=== PATIENT | female | born 1945 | race Caucasian/White ===

== ENCOUNTER 2019-09-30 03:19 | Outpatient (CLI) | payer MEDICARE | END 2019-09-30 03:20 | disposition critical access hospital (66) | LOC: EMS 03:19 | PROVIDERS: ATTEND Surgery | DX: R47.81 Slurred speech (principal); R46.4 Slowness and poor responsiveness; R29.810 Facial weakness; R53.1 Weakness | CPT/HCPCS: A0425; A0429 ==

== ENCOUNTER 2019-09-30 03:32 | Emergency (ER) | payer MEDICARE, OTHER ==
--- NOTE | 2019-09-30 03:36 | ED Physician Documentation ---
History of Present Illness - Stated complaint Stated Complaint: LT SIDE WEAKNESS, FACIAL DROOP - History obtained from History obtained from: Patient, EMS (The patient is a 74-year-old female brought in by EMS after her found her this morning with left-sided facial droop and left-sided weakness her last known normal was approximately 8 hours prior to arrival at 1900 yesterday. EMS also reports that she currently is being treated for pneumonia. the remainder of the history is unknown.) Review of Systems Unable to obtain: [facility] PAST MEDICAL HISTORY - Present Medications Home Medications: Ambulatory Orders Medication Instructions Recorded Confirmed Acetaminophen [Tylenol Extra 500 mg PO Q8HR PRN 09/30/19 09/30/19 Strength] Levofloxacin [Levaquin] 750 mg PO DAILY 09/30/19 09/30/19 Prednisone 10 mg PO DAILY 09/30/19 09/30/19 SUMAtriptan [Imitrex] 50 mg PO ONCE PRN 09/30/19 09/30/19 oxyCODONE [Roxicodone] 5 mg PO QID PRN 09/30/19 09/30/19 - Allergies Allergies/Adverse Reactions: Allergies Allergy/AdvReac Type Severity Reaction Status Date / Time Sulfa (Sulfonamide Allergy Mild Hives Verified 02/05/13 15:02 Antibiotics) amoxicillin [Amoxicillin] Allergy Unknown Rash Verified 02/05/13 15:03 codeine [Codeine] AdvReac Intermediate Nausea Verified 02/05/13 15:01 PD ED PE NORMAL - Vitals Vital signs reviewed: Yes - General General: Alert and oriented X 3, No acute distress, Well developed/nourished - HEENT HEENT: PERRL, Moist mucous membranes - Neck Neck: Supple, no meningeal sign, Thyroid normal - Cardiac Cardiac: RRR, No murmur, Strong equal pulses - Respiratory Respiratory: Clear bilaterally, Other (Diffuse crackles and rhonchi in bilateral lung gar[place] wet productive cough trachea midline) - Abdomen Abdomen: Normal bowel sounds, Soft, Non tender, Non distended - Derm Derm: Warm and dry - Extremities Extremities: No deformity - Neuro Neuro: Other (Left-sided facial droop left upper and lower extremity weakness. NIH 9.) - Psych Psych: Normal mood, Normal affect Results - Vitals Vitals: Oxygen O2 Source Nasal cannula Oxygen Flow Rate 2 - EKG (time done) 03:46 Rate: Other (no stemi) - Labs Labs: Microbiology 09/30/19 06:30 Blood Culture - Preliminary Blood NO GROWTH AFTER 1 DAY 09/30/19 04:50 Blood Culture - Preliminary Blood NO GROWTH AFTER 1 DAY Laboratory Tests 09/30/19 09/30/19 09/30/19 04:20 04:20 04:30 WBC RBC Hgb Hct MCV MCH MCHC RDW Plt Count MPV Neut # (Auto) Lymph # (Auto) [place] # (Auto) Eos # (Auto) Baso # (Auto) Absolute Nucleated RBC Nucleated RBC % PT INR APTT Sodium Potassium Chloride Carbon Dioxide Anion Gap BUN Creatinine Estimated GFR (MDRD) Glucose Lactic Acid Calcium Magnesium Total Bilirubin AST ALT Alkaline Phosphatase Total Creatine Kinase Troponin I High Sens B-Natriuretic Peptide Total Protein Albumin Globulin Albumin/Globulin Ratio Lipase Urine Color YELLOW Urine Clarity CLEAR Urine pH 5.0 Ur Specific [place] >=1.030 H Urine Protein >=300 H Urine Glucose (UA) NEGATIVE Urine Ketones TRACE Urine Occult Blood SMALL H Urine Nitrite NEGATIVE Urine Bilirubin NEGATIVE Urine Urobilinogen 0.2 (NORMAL) Ur Leukocyte Esterase NEGATIVE Urine RBC 0-5 Urine WBC 0-3 Ur Squamous Epith Cells NONE SEEN Urine Bacteria Rare Urine Casts 6-10 Hyaline Casts Ur Microscopic Review INDICATED Urine Culture Comments NOT INDICATED Urine Opiates Screen POSITIVE H Ur Oxycodone Screen POSITIVE H Urine Methadone Screen NEGATIVE Ur Propoxyphene Screen NEGATIVE Ur Barbiturates Screen NEGATIVE Ur Tricyclics Screen POSITIVE H Ur Phencyclidine Scrn POSITIVE H Ur Amphetamine Screen NEGATIVE U Methamphetamines Scrn NEGATIVE U Benzodiazepines Scrn POSITIVE H Urine Cocaine Screen POSITIVE H U Cannabinoids Screen NEGATIVE Ethyl Alcohol Influenza A (Rapid) Negative Influenza B (Rapid) Negative RSV Rapid Negative 09/30/19 09/30/19 09/30/19 04:50 04:50 04:50 WBC 14.0 H RBC 3.88 L Hgb 10.3 L Hct 33.6 L MCV 86.6 MCH 26.5 L MCHC 30.7 L RDW 16.3 H Plt Count 162 MPV 10.1 Neut # (Auto) 12.8 H Lymph # (Auto) 0.3 L [place] # (Auto) 0.7 Eos # (Auto) 0.0 Baso # (Auto) 0.0 Absolute Nucleated RBC 0.00 Nucleated RBC % 0.0 PT 15.3 H INR 1.4 H APTT 31.8 Sodium 133 L Potassium 4.5 Chloride 103 Carbon Dioxide 20 L Anion Gap 10.0 BUN 29 H Creatinine 1.3 H Estimated GFR (MDRD) 40 L Glucose 158 H Lactic Acid Calcium 8.5 Magnesium 2.7 Total Bilirubin 0.6 AST 34 ALT 16 Alkaline Phosphatase 75 Total Creatine Kinase 362 H Troponin I High Sens B-Natriuretic Peptide Total Protein 6.7 Albumin 3.4 Globulin 3.3 Albumin/Globulin Ratio 1.0 Lipase 836 H Urine Color Urine Clarity Urine pH Ur Specific [place] Urine Protein Urine Glucose (UA) Urine Ketones Urine Occult Blood Urine Nitrite Urine Bilirubin Urine Urobilinogen Ur Leukocyte Esterase Urine RBC Urine WBC Ur Squamous Epith Cells Urine Bacteria Urine Casts Ur Microscopic Review Urine Culture Comments Urine Opiates Screen Ur Oxycodone Screen Urine Methadone Screen Ur Propoxyphene Screen Ur Barbiturates Screen Ur Tricyclics Screen Ur Phencyclidine Scrn Ur Amphetamine Screen U Methamphetamines Scrn U Benzodiazepines Scrn Urine Cocaine Screen U Cannabinoids Screen Ethyl Alcohol < 5.0 Influenza A (Rapid) Influenza B (Rapid) RSV Rapid 09/30/19 09/30/19 09/30/19 04:50 04:50 04:50 WBC RBC Hgb Hct MCV MCH MCHC RDW Plt Count MPV Neut # (Auto) Lymph # (Auto) [place] # (Auto) Eos # (Auto) Baso # (Auto) Absolute Nucleated RBC Nucleated RBC % PT INR APTT Sodium Potassium Chloride Carbon Dioxide Anion Gap BUN Creatinine Estimated GFR (MDRD) Glucose Lactic Acid 1.1 Calcium Magnesium Total Bilirubin AST ALT Alkaline Phosphatase Total Creatine Kinase Troponin I High Sens 3869.6 H* B-Natriuretic Peptide 1759 H Total Protein Albumin Globulin Albumin/Globulin Ratio Lipase Urine Color Urine Clarity Urine pH Ur Specific [place] Urine Protein Urine Glucose (UA) Urine Ketones Urine Occult Blood Urine Nitrite Urine Bilirubin Urine Urobilinogen Ur Leukocyte Esterase Urine RBC Urine WBC Ur Squamous Epith Cells Urine Bacteria Urine Casts Ur Microscopic Review Urine Culture Comments Urine Opiates Screen Ur Oxycodone Screen Urine Methadone Screen Ur Propoxyphene Screen Ur Barbiturates Screen Ur Tricyclics Screen Ur Phencyclidine Scrn Ur Amphetamine Screen U Methamphetamines Scrn U Benzodiazepines Scrn Urine Cocaine Screen U Cannabinoids Screen Ethyl Alcohol Influenza A (Rapid) Influenza B (Rapid) RSV Rapid 09/30/19 09/30/19 08:12 09:43 WBC RBC Hgb Hct MCV MCH MCHC RDW Plt Count MPV Neut # (Auto) Lymph # (Auto) [place] # (Auto) Eos # (Auto) Baso # (Auto) Absolute Nucleated RBC Nucleated RBC % PT INR APTT Sodium Potassium Chloride Carbon Dioxide Anion Gap BUN Creatinine Estimated GFR (MDRD) Glucose Lactic Acid Calcium Magnesium Total Bilirubin AST ALT Alkaline Phosphatase Total Creatine Kinase Troponin I High Sens 3623.6 H* B-Natriuretic Peptide Total Protein Albumin Globulin Albumin/Globulin Ratio Lipase Urine Color Urine Clarity Urine pH Ur Specific [place] Urine Protein Urine Glucose (UA) Urine Ketones Urine Occult Blood Urine Nitrite Urine Bilirubin Urine Urobilinogen Ur Leukocyte Esterase Urine RBC Urine WBC Ur Squamous Epith Cells Urine Bacteria Urine Casts Ur Microscopic Review Urine Culture Comments Urine Opiates Screen POSITIVE H Ur Oxycodone Screen POSITIVE H Urine Methadone Screen NEGATIVE Ur Propoxyphene Screen NEGATIVE Ur Barbiturates Screen NEGATIVE Ur Tricyclics Screen POSITIVE H Ur Phencyclidine Scrn POSITIVE H Ur Amphetamine Screen NEGATIVE U Methamphetamines Scrn NEGATIVE U Benzodiazepines Scrn POSITIVE H Urine Cocaine Screen POSITIVE H U Cannabinoids Screen NEGATIVE Ethyl Alcohol Influenza A (Rapid) Influenza B (Rapid) RSV Rapid PD MEDICAL DECISION MAKING - ED course Complexity details: considered differential (cva), other (cta shows small vessel occlusion, no large vessel occlusion. patient not a TPA candidiate or a neurointerventional candidate. patient will be transferred to a higher level of care as patient will need speech therpist and swallowing/speech therapy. ) - Consults Consults: Discussed case with (DR. Lawrence at [facility]. he does not recommend TPA or neurointerventional. this patient will need higher level of care for stroke care as patient is having speech deficits and we do not have speech therapy. ), Request databases software consultant accept pt in transfer (dr. lawrence neurologist at [facility] will accept this patient. ) - Critical Care Time(min): 30 Time Includes: Direct patient care, Review records, Reassess patient, Document care, Coordinate care, Medical consult Data interpretation: Labs, Pulse ox, CXR Procedures included in critical care time: Peripheral IV Procedures excluded from critical care time: EKG Departure - Departure Disposition: 02 Transfer Acute Care Hosp Clinical Impression: Ischemic stroke Condition: Stable Discharge Date/Time: 09/30/19 09:55
[2019-09-30 04:39] LABS: RESPIRATORY SYNCYTIAL VIRUS Negative (Negative)
[2019-09-30 04:42] LABS: MUDS CUTOFF CONCENTRATIONS CUTOFF CONC BELOW:
[2019-09-30 04:43] LABS: GLUCOSE, URINE (UA) NEGATIVE (NEGATIVE); KETONES,URINE (UA) TRACE mg/dL (NEGATIVE); LEUKOCYTE ESTERASE, URINE NEGATIVE (NEGATIVE); NITRITE,URINE NEGATIVE (NEGATIVE); OCCULT BLOOD,URINE SMALL (NEGATIVE); PROTEIN,URINE >=300 mg/dL (NEGATIVE); UROBILINOGEN,URINE 0.2 (NORMAL) E.U./dL (NORMAL)
[2019-09-30 04:46] LABS: BILIRUBIN,URINE NEGATIVE (NEGATIVE); CLARITY,URINE CLEAR (CLEAR); ICTOTEST,URINE NEGATIVE
[2019-09-30 04:51] LABS: BACTERIA,URINE Rare /HPF (None Seen); CASTS, URINE 6-10 Hyaline Casts /LPF; RBC,URINE 0-5 /HPF (0-5); SQUAMOUS EPITHELIAL CELL,UR NONE SEEN (<= Few)
[2019-09-30 04:54] LABS: AMPHETAMINE SCREEN,URINE NEGATIVE (NEGATIVE); BENZODIAZEPINES SCREEN, URINE POSITIVE (NEGATIVE); COCAINE SCREEN URINE POSITIVE (NEGATIVE); METHAMPHETAMINES SCREEN, URINE NEGATIVE (NEGATIVE); OPIATE SCREEN, URINE POSITIVE (NEGATIVE); TRICYCLIC ANTIDEPRESSANT,URINE POSITIVE (NEGATIVE)
[2019-09-30 04:55] LABS: METHADONE SCREEN, URINE NEGATIVE (NEGATIVE); OXYCODONE SCREEN, URINE POSITIVE (NEGATIVE); PROPOXYPHENE SCREEN, URINE NEGATIVE (NEGATIVE)
[2019-09-30 05:08] LABS: BASOPHILS % (AUTO) 0.2 %; HGB - HEMOGLOBIN 10.3 g/dL (12.0-16.0); LYMPHOCYTES # (AUTO) 0.3 10^3/uL (1.5-3.5); LYMPHOCYTES % (AUTO) 2.4 %; MEAN CORPUSCULAR HEMOGLOBIN 26.5 pg (27.0-31.0); MEAN CORPUSCULAR HGB CONC 30.7 g/dL (32.0-36.0); MEAN CORPUSCULAR VOLUME 86.6 fL (81.0-99.0); MEAN PLATELET VOLUME 10.1 fL (7.9-10.8); MONOCYTES # (AUTO) 0.7 10^3/uL (0.0-1.0); MONOCYTES % (AUTO) 5.1 %; NEUTROPHILS # (AUTO) 12.8 10^3/uL (1.5-6.6); NEUTROPHILS % (AUTO) 91.5 %; PLT - PLATELET COUNT 162 10^3/uL (130-450); RED BLOOD COUNT 3.88 10^6/uL (4.20-5.40); RED CELL DISTRIBUTION WIDTH 16.3 % (12.0-15.0)
[2019-09-30 05:15] LABS: INR 1.4 (0.8-1.2); PT - PROTHROMBIN TIME 15.3 secs (9.9-12.6)
[2019-09-30 05:22] LABS: PARTIAL THROMBOPLASTIN TIME 31.8 secs (24.9-33.3)
[2019-09-30 05:38] LABS: ALBUMIN 3.4 g/dL (3.2-5.5); ALKALINE PHOSPHATASE 75 IU/L (42-121); ALT ALANINE AMINOTRANSFERASE 16 IU/L (10-60); AST ASPARTATE AMINOTRANSFERASE 34 IU/L (10-42); BILIRUBIN,TOTAL 0.6 mg/dL (0.2-1.0); BUN - BLOOD UREA NITROGEN 29 mg/dL (6-20); CALCIUM 8.5 mg/dL (8.5-10.3); CARBON DIOXIDE - CO2 20 mmol/L (21-32); CHLORIDE 103 mmol/L (101-111); CK- CREATINE KINASE 362 IU/L (22-269); CREATININE 1.3 mg/dL (0.4-1.0); GLUCOSE 158 mg/dL (70-100); LIPASE 836 U/L (22-51); MAGNESIUM 2.7 mg/dL (1.7-2.8); SODIUM 133 mmol/L (135-145); TOTAL PROTEIN 6.7 g/dL (6.7-8.2)
[2019-09-30] MEDS ORDERED: IOVERSOL 320 100 ML VIAL IVP ONE ×2 (05:59→06:00)
--- NOTE | 2019-09-30 07:44 | CT Report ---
Reason: Left-sided weakness Procedure Date: 09/30/2019 Accession Number: [id number] / [id number] Procedure: CT - HEAD WO CPT Code: Final Report FULL RESULT: PROCEDURE: HEAD WO INDICATIONS: Left-sided weakness TECHNIQUE: Noncontrast 4.5 mm thick angled axial sections acquired from the foramen magnum to the vertex. For radiation dose reduction, the following was used: automated exposure control, adjustment of mA and/or kV according to patient size. COMPARISON: Brain MRI 02/07/[address] head 02/05/2013 FINDINGS: Image quality: Excellent. CSF spaces: Basal cisterns are patent. No extra-axial fluid collections. The ventricles are symmetric in size and shape. Brain: No intracranial bleeds or masses. There is cerebral volume loss for age, with resultant ventricular and sulcal prominence. There are periventricular and deep white matter chronic small vessel ischemic changes. There is intracranial internal carotid artery atherosclerosis. Skull and face: Calvarium and visualized facial bones appear intact, without suspicious lesions. Sinuses: Visualized sinuses and mastoids are clear. IMPRESSION: No acute intracranial disease process. Reviewed by: Maureen Warren MD, PhD on 09/30/2019 7:42 AM PDT Approved by: Maureen Warren MD, PhD on 09/30/2019 7:42 AM PDT Station ID: [id number]
--- NOTE | 2019-09-30 07:49 | XRAY Report ---
Reason: ams Procedure Date: 09/30/2019 Accession Number: [id number] / [id number] Procedure: XR - Chest 1 View X-Ray CPT Code: 25368 Final Report FULL RESULT: PROCEDURE: Chest 1 View X-Ray INDICATIONS: Acute mental status changes TECHNIQUE: One view of the chest was acquired. COMPARISON: 02/05/2013 FINDINGS: Surgical changes and devices: None. Lungs and pleura: No pleural effusions or pneumothorax. There is cephalization the pulmonary vasculature and interstitial prominence suggesting fluid overload/CHF. Subtle opacity noted in the right upper lobe. Mediastinum: Mediastinal contours appear normal. Heart size is normal. Bones and chest wall: No suspicious bony lesions. Overlying soft tissues appear unremarkable. IMPRESSION: 1. Findings suggestive of CHF/fluid overload. 2. Subtle opacity right upper lobe which could represent atelectasis, pulmonary edema or pneumonia. Reviewed by: Maureen Warren MD, PhD on 09/30/2019 7:48 AM PDT Approved by: Maureen Warren MD, PhD on 09/30/2019 7:48 AM PDT Station ID: [id number]
--- NOTE | 2019-09-30 08:23 | CT Report ---
Reason: L sided facial droop, L neck pain Procedure Date: 09/30/2019 Accession Number: [id number] / [id number] Procedure: CT - ANGIO NECK W CPT Code: Final Report FULL RESULT: PROCEDURE: ANGIO NECK W INDICATIONS: L sided facial droop, L neck pain CONTRAST: IV CONTRAST: Optiray 320 ml: 80 PO CONTRAST: *NO PO CONTRAST TECHNIQUE: After the administration of intravenous contrast, 1.5 mm axial sections acquired from the aortic arch to the [place] of [place]. Coronal 3-D maximum intensity projection (MIP) and/or volume rendering reformats were then performed. For radiation dose reduction, the following was used: automated exposure control, adjustment of mA and/or kV according to patient size. COMPARISON: CTA neck 09/30/2019, CT brain 09/30/2019, MR I/MRA brain 02/07/2013 FINDINGS: Image quality: Excellent. The origins of the left and right common, internal and exterrnal carotid arteries demonstrate no areas of hemodynamically significant stenosis, vascular occlusion or aneurysmal dilation. Origin of the left vertebral artery and right vertebral artery demonstrate no areas of hemodynamically significant stenosis, vascular occlusion or aneurysmal dilation. There is marked attenuation of the right M3 division of the middle cerebral artery. There is questionable subtle appearance of low attenuation within the surrounding kahn matter. Aortic arch demonstrates conventional anatomy. Limited, visualized portions of the subclavian vasculature are unremarkable. Partially visualized pleural effusions are noted. Enlarged mediastinal lymph nodes are present including a 17 mm anterior paratracheal node. IMPRESSION: 1. Attenuated appearance of the anterior division of the right middle cerebral artery with questionable, subtle appearance of hypoattenuation within the surrounding kahn matter. Occlusion with surrounding infarct cannot be excluded and MRI brain is recommended for further evaluation. 2. Partially visualized mediastinal adenopathy and pleural effusions. CT chest may be obtained as clinically indicated for further evaluation. The above findings are concordant with preliminary report. The estimate of stenosis included in the report of the imaging study was calculated using the NASCET method Reviewed by: Fidelia Johnson MD on 09/30/2019 8:22 AM PDT Approved by: Fidelia Johnson MD on 09/30/2019 8:22 AM PDT Station ID: [id number]
[2019-09-30 08:25] LABS: MUDS CUTOFF CONCENTRATIONS CUTOFF CONC BELOW:
--- NOTE | 2019-09-30 08:26 | CT Report ---
Reason: L sided facial droop Procedure Date: 09/30/2019 Accession Number: [id number] / [id number] Procedure: CT - ANGIO HEAD W/WO CPT Code: Final Report FULL RESULT: PROCEDURE: ANGIO HEAD W/WO INDICATIONS: L sided facial droop CONTRAST: IV CONTRAST: Optiray 320 ml: 80 PO CONTRAST: *NO PO CONTRAST TECHNIQUE: Precontrast 4.5 mm thick angled axial sections acquired from the foramen magnum to the vertex. After the administration of intravenous contrast, 1 mm thick sections acquired through the [place] of [place]. Postcontrast 4.5 mm thick sections then re-acquired from the foramen magnum to the vertex. 3-dimensional [id number] (MIP) and/or volume rendering reformats were acquired of the central intracranial vasculature. For radiation dose reduction, the following was used: automated exposure control, adjustment of mA and/or kV according to patient size. COMPARISON: CTA head 09/30/2019, CT TA neck 09/30/2019, MRI/MRA brain 02/07/2013 FINDINGS: Image quality: Excellent. The posterior circulation demonstrates a left vertebral artery dominance. Basilar artery and posterior cerebral arteries demonstrate no areas of hemodynamically significant stenosis, vascular occlusion or aneurysmal dilation. Posterior communicating arteries are within normal limits. There is an attenuated appearance of the M3 segment of the right middle cerebral artery. Very minimal appearance of hypoattenuation is noted within the adjacent kahn matter. The anterior and left middle cerebral arteries, as well as internal carotid arteries demonstrates no areas of hemodynamically significant stenosis, vascular occlusion or aneurysmal dilation. IMPRESSION: 1. Attenuated appearance of the M3 segment of the right middle cerebral artery with subtle appearance of adjacent low attenuation within the kahn matter suggestive of occlusion and surrounding acute ischemia. MR brain is recommended for further evaluation. The above findings are concordant with preliminary report. Reviewed by: Fidelia Johnson MD on 09/30/2019 8:25 AM PDT Approved by: Fidelia Johnson MD on 09/30/2019 8:25 AM PDT Station ID: [id number]
[2019-09-30] MEDS ORDERED: ALBUTEROL 1 PUFF INH STA (08:28)
[2019-09-30 08:43] LABS: AMPHETAMINE SCREEN,URINE NEGATIVE (NEGATIVE); BENZODIAZEPINES SCREEN, URINE POSITIVE (NEGATIVE); COCAINE SCREEN URINE POSITIVE (NEGATIVE); METHADONE SCREEN, URINE NEGATIVE (NEGATIVE); METHAMPHETAMINES SCREEN, URINE NEGATIVE (NEGATIVE); OPIATE SCREEN, URINE POSITIVE (NEGATIVE); OXYCODONE SCREEN, URINE POSITIVE (NEGATIVE); PROPOXYPHENE SCREEN, URINE NEGATIVE (NEGATIVE); TRICYCLIC ANTIDEPRESSANT,URINE POSITIVE (NEGATIVE)
[2019-09-30] MEDS ORDERED: IPRATROPIUM/ALBUTEROL 3 ML NEB INH ONE (08:52)
[2019-09-30] MEDS ORDERED: IPRATROPIUM/ALBUTEROL 3 ML NEB INH STA (09:03)
[2019-09-30 09:07] VITALS: BP 145/58
[2019-09-30] MEDS ORDERED: FUROSEMIDE 40 MG/4 ML VIAL IVP STA (09:23)
== END 2019-09-30 09:55 | disposition short-term general hospital (02) ==
LOC: EDUNIT# → ED 03:32
DX: I63.511 Cerebral infarction due to unspecified occlusion or stenosis of right middle cerebral artery (principal); R47.01 Aphasia; R29.810 Facial weakness; G81.94 Hemiplegia, unspecified affecting left nondominant side; R29.709 NIHSS score 9; J18.9 Pneumonia, unspecified organism; Z20.828 Contact with and (suspected) exposure to other viral communicable diseases; R00.8 Other abnormalities of heart beat
CPT/HCPCS: 36415; 70496; 70498; 71045; 80053; 80306; 81001; 82550; 83605; 83690; 83735; 83880; 84484; 85025; 85610; 85730; 87040; 87275; 87276; 87280; 93005; 94640; 96374; 99285; 99291; Q9967; U0004; 70450; 80320; 81003; 81599; 87086

== ENCOUNTER 2019-09-30 09:57 | Outpatient (CLI) | payer MEDICARE | END 2019-09-30 09:58 | disposition short-term general hospital (02) | LOC: EMS 09:57 | PROVIDERS: ATTEND Surgery | DX: R29.810 Facial weakness (principal); R47.81 Slurred speech; R41.0 Disorientation, unspecified | CPT/HCPCS: A0425; A0428 ==